=== PATIENT | male | born 1945 | race Caucasian/White ===

== ENCOUNTER 2021-06-19 16:57 | Inpatient (IN) | payer OTHER ==
[~2021-06-19] VITALS: Ht 182.9 cm; Wt 64.2 kg
[2021-06-19 23:30] VITALS: BP 148/100
[2021-06-20 03:53] LABS: CHOLESTEROL 152 mg/dL (<200); HDL CHOLESTEROL 50 mg/dL (>40); LDL CHOLESTEROL 86 mg/dL (<100); SERUM ASSESSMENT Clear; TRIGLYCERIDE 82 mg/dL (<150); VLDL 16 mg/dL (<40)
[2021-06-20 07:00] VITALS: BP 124/74
[2021-06-20 09:49] VITALS: BP 124/74
--- NOTE | 2021-06-20 12:35 | EKG ---
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 : 1945 Requested By: Marcial Elias Order Number: [id number] MD: Jerrod Lopez Measurements Intervals [place] Rate: 107 P: 85 [place]: 141 QRS: -72 QRSD: 98 T: 85 QT: 336 QTc: 449 Interpretive Statements Sinus tachycardia Probable left atrial enlargement Left anterior fascicular block Borderline repolarization abnormality No previous ECG available for comparison Electronically Signed On 06-20-2021 12:34:51 CLERICAL ASSOCIATE by Jerrod Lopez [email or web address] <ELECTRONICALLY SIGNED> By: Jerrod Lopez MD, [facility] 06/20/21 1234 0837 6 Jerrod Lopez MD, FACC /EPI
[2021-06-20 13:26] LABS: ANION GAP 16 mmol/L (7-16); BUN 21 mg/dL (7-18); CALCIUM 9.4 mg/dL (8.5-10.1); CHLORIDE 103 mmol/L (98-107); CO2 19 mmol/L (21-32); GLUCOSE 88 mg/dL (74-106); POTASSIUM 4.4 mmol/L (3.5-5.1); SODIUM 138 mmol/L (136-145)
[2021-06-20 18:55] VITALS: BP 128/62
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
[2021-06-21 08:08] LABS: GLYCOHEMOGLOBIN (HGB A1C) 5.5 % (4.8-5.6)
[2021-06-21 10:48] VITALS: BP 145/88
[2021-06-22 07:42] VITALS: BP 158/104
[2021-06-22 11:10] VITALS: BP 143/94
[2021-06-22 19:50] VITALS: BP 154/104
[2021-06-23 03:55] VITALS: BP 99/58
[2021-06-23 09:48] VITALS: BP 138/88
[2021-06-23 12:37] LABS: ABSOLUTE NEUTROPHILS 5.7 thou/uL (1.4-8.2); BASOPHILS 0.3 % (0.0-2.0); EOSINOPHILS 1.2 % (0.0-3.0); HEMATOCRIT 47.7 % (42.0-52.0); HEMOGLOBIN 15.9 gm/dL (14.0-18.0); LYMPHOCYTES 20.8 % (24.0-44.0); MCH 30.5 pg (26.0-34.0); MCHC 33.4 g/dL (28.0-37.0); MCV 91.6 fL (80.0-100.0); MONOCYTES 7.6 % (1.0-8.0); PLATELET COUNT 240 thou/uL (150-400); POLYS 70.1 % (36.0-66.0); RBC 5.21 mil/uL (4.50-6.00); RDW 13.5 % (10.5-14.5); WBC 8.1 thou/uL (4.0-11.0)
[2021-06-23 12:42] VITALS: BP 138/88
[2021-06-23 14:14] LABS: URINE BILIRUBIN NEGATIVE (Negative); URINE BLOOD NEGATIVE (Negative); URINE CLARITY CLEAR; URINE COLOR YELLOW; URINE GLUCOSE-RANDOM* NEGATIVE (Negative); URINE KETONES NEGATIVE (Negative); URINE LEUKOCYTES-REFLEX NEGATIVE (Negative); URINE NITRITE-REFLEX NEGATIVE (Negative); URINE PROTEIN (DIPSTICK) NEGATIVE (Negative); URINE UROBILINOGEN 0.2 E.U./dl (0.2-1.0)
[2021-06-23 19:51] VITALS: BP 146/94
[2021-06-23 20:06] LABS: SYPHILIS AB Non Reactive (Non Reactive)
[2021-06-24 10:42] VITALS: BP 139/88
[2021-06-24 12:54] VITALS: BP 139/88
[2021-06-24 20:05] VITALS: BP 134/68
[2021-06-24 21:59] VITALS: BP 134/68
[2021-06-25 08:51] VITALS: BP 143/87
[2021-06-25 09:15] VITALS: BP 143/87
[2021-06-25 19:30] VITALS: BP 146/92
[2021-06-25 19:33] VITALS: BP 146/92
[2021-06-26 08:10] VITALS: BP 150/94
[2021-06-26 19:40] VITALS: BP 140/87
[2021-06-26 20:20] VITALS: BP 146/100
== END 2021-06-27 | disposition home or self-care (01) | DRG 884 ==
LOC: SBH
PROVIDERS: Hospitalist; ADMIT Psychiatry & Neurology Psychiatry; ATTEND Psychiatry & Neurology Psychiatry
DX: F03.91 Unspecified dementia, unspecified severity, with behavioral disturbance (principal); E43 Unspecified severe protein-calorie malnutrition; G93.41 Metabolic encephalopathy; Z68.1 Body mass index [BMI] 19.9 or less, adult; F29 Unspecified psychosis not due to a substance or known physiological condition; I10 Essential (primary) hypertension; E78.5 Hyperlipidemia, unspecified; Z60.2 Problems related to living alone; F41.1 Generalized anxiety disorder; M21.371 Foot drop, right foot; Z20.822 Contact with and (suspected) exposure to COVID-19; E55.9 Vitamin D deficiency, unspecified
CPT/HCPCS: 10880

== ENCOUNTER 2021-06-19 18:31 | Emergency (ER) | payer OTHER ==
[~2021-06-19] VITALS: Ht 162.6 cm; Wt 63.5 kg
--- NOTE | ~2021-06-19 | EMS ---
[address] [address] EMS Patient Care Report Name: KARELY HOOVER Room #: DEP M.R.#: [id number] Admission: 06/19/21 Attend Phys: Discharge: 06/19/21 Date of : 49 Report #: [id number] THIS REPORT FOR: //name// Report Transmitted: 06/20/2021 11:10 EMS Care Summary [place], [place]/[facility] Incident [id number] @ 06/19/2021 17:21 Incident Location [facility] ER 26 Patient KARELY HOOVER Male, 75 Years 1945 Patient Address [address] [place] [address] Patient History Dementia, Patient Allergies No known allergies, Patient Medications Trazodone, Ativan, Benadryl, Haldol, Chief Complaint transfer/ si-hi Disposition Transported No Lights/[place] Dispatch Reason Sick Person Transported To [facility] Narrative pt has been at er for over 24 hrs waiting for a bed. he was brought to er for si/hi. he treatened to kill and drown himself with a bottle of water. he has dementia and has been worse than normal lately . pt cooperative , going to [facility]. no problems en route. [address] [address] EMS Patient Care Report Name: KARELY HOOVER Room #: DEP ER [facility]#: [id number] Admission: 06/19/21 Attend Phys: Discharge: 06/19/21 Date of : 49 Report #: [id number] Initial Vitals @18:24P: 95,R: 16,BP: 143/82,SpO2: 95, @18:12P: 104,R: 16,BP: 150/95,Pain: 0/10,GCS: 15,SpO2: 97,Revised Trauma: 12, Assessments @18:03MENTAL:No Abnormalities,SKIN:No Abnormalities,HEENT:Head/Face: No Abnormalities,Eyes: No Abnormalities,Neck/Airway: No Abnormalities,LUNG SOUNDS:General: No Abnormalities,Left Upper: No Abnormalities,Right Upper: No Abnormalities,Left Lower: No Abnormalities,Right Lower: No Abnormalities,ABDOMEN:General: No Abnormalities,Left Upper: No Abnormalities,Right Upper: No Abnormalities,Left Lower: No Abnormalities,Right Lower: No Abnormalities,PELVIS//GI:No Abnormalities,EXTREMITIES:Left Arm: No Abnormalities,Right Arm: No Abnormalities,Left Leg: No Abnormalities,Right Leg: No Abnormalities,PULSE:NEURO:No Abnormalities, Impression Behavioral/psychiatric episode Procedures @18:03 ALS Assessment Timeline 17:02,Call Received 17:02,Dispatch Notified 17:21,Dispatched 17:21,En Route 17:41,On Scene 17:41,At Patient 18:03,ALS Assessment, 18:04,Depart Scene 18:05,At Destination 18:12,BP: 150/95 M,PULSE: 104,RR: 16 R,SPO2: 97 Ox,ETCO2: ,BG: ,PAIN: 0,GCS: 15, 18:24,BP: 143/82 M,PULSE: 95,RR: 16 R,SPO2: 95 Ox,ETCO2: ,BG: ,PAIN: ,GCS: , 18:44,Call Closed Disclaimer v1.1 Copyright 2021 [employer] This EMS Care Summary contains data elements from the applicable legal record (which may be displayed differently). It is designed to provide pertinent information for the following purposes: continuity of care, clinical quality, and state data reporting. The complete legal record is available to ED staff and administrators of the receiving hospital in [employer] Patient Tracker. All data is provided "as is."
[2021-06-19 23:17] VITALS: BP 156/93
== END 2021-06-19 23:17 ==
LOC: ER 18:31
PROVIDERS: Physician Assistant
DX: Z02.89 Encounter for other administrative examinations (principal); Z20.822 Contact with and (suspected) exposure to COVID-19